=== PATIENT | male | born 1960 | race Caucasian/White ===

== ENCOUNTER 2017-12-21 21:37 | Emergency (ER) | payer OTHER ==
[~2017-12-21] VITALS: Ht 170.2 cm; Wt 75.3 kg
[2017-12-21 21:40] VITALS: Ht 170.2 cm; Wt 75.3 kg
[2017-12-22 00:32] VITALS: BP 124/84
== END 2017-12-22 00:32 | disposition home or self-care (01) ==
LOC: ED 21:37
DX: J40 Bronchitis, not specified as acute or chronic (principal)